=== PATIENT | female | born 1980 | race Caucasian/White ===

== ENCOUNTER 2017-07-28 21:11 | Emergency (ER) | payer OTHER ==
[~2017-07-28] VITALS: Ht 152.4 cm; Wt 60.3 kg
[~2017-07-28 21:11] MED LIST: TRAMADOL HCL-AP1 TAB PO
== END 2017-07-28 23:59 | disposition home or self-care (01) ==
LOC: ER 21:11
DX: J11.1 Influenza due to unidentified influenza virus with other respiratory manifestations (principal)

== ENCOUNTER 2018-02-18 19:11 | Emergency (ER) | payer OTHER ==
[~2018-02-18] VITALS: Ht 154.9 cm; Wt 56.2 kg
== END 2018-02-18 21:02 | disposition home or self-care (01) ==
LOC: ER 19:11
DX: H66.91 Otitis media, unspecified, right ear (principal)

== ENCOUNTER 2018-08-07 19:33 | Emergency (ER) | payer OTHER ==
[~2018-08-07] VITALS: Ht 154.9 cm; Wt 56.2 kg
== END 2018-08-07 22:05 | disposition home or self-care (01) ==
LOC: ER 19:33
DX: R10.13 Epigastric pain (principal); K21.9 Gastro-esophageal reflux disease without esophagitis